=== PATIENT | male | born 1985 | race Caucasian/White ===

== ENCOUNTER 2017-03-19 05:18 | Emergency (ER) | payer MEDICAID ==
[~2017-03-19] VITALS: Ht 177.8 cm; Wt 88.5 kg
[2017-03-19] MEDS ORDERED: SUCCINYLCHOLINE CHLORIDE 200 MG/10 ML VIAL MC ONE (05:21)
--- NOTE | 2017-03-19 05:25 | NUR ---
Patient bib RA 83, FOR POTENTIAL OD. RECEIVED PATIENTS IN RESTRAINTS. PATIENT IS ASLEEP, RESPIRATIONS EVEN AND UNLABORED, PATIENT WAS GIVEN VERSED IN THE FIELD, FOR "BEING WILD" ACCORDING TO EMS. VSS STABLE AT THIS TIME.
--- NOTE | 2017-03-19 05:38 | NUR ---
DR. HOYOS AT BEDSIDE FOR EVAL.
[2017-03-19] MEDS ORDERED: IV NORMAL SALINE 1000 ML BAG IV ONE (05:45)
[2017-03-19 06:01] LABS: *BILIRUBIN,URIN NEGATIVE (NEGATIVE); *BLOOD, URINE Trace-intact (NEGATIVE); *CLARITY,URINE CLEAR (CLEAR); *COLOR,URINE YELLOW (YELLOW); *KETONES,URINE NEGATIVE (NEGATIVE); *PROTEIN,URINE NEGATIVE (NEGATIVE); *UROBILINOGEN,URINE 0.2 E.U./dl (NORMAL); LEUKOCYTE ESTERASE ,URINE NEGATIVE (NEGATIVE); NITRITE, URINE NEGATIVE (NEGATIVE); PH,URINE 5.5 (5.0-8.0); UGLUCOSE NEGATIVE (NEGATIVE)
[2017-03-19 06:04] LABS: BASOPHILS # (AUTO) 0.1 K/uL (0.0-8.0); BASOPHILS % (AUTO) 0.6 % (0.0-2.0); EOSINOPHILS % (AUTO) 0.2 % (0.0-7.0); HEMOGLOBIN 14.6 G/DL (14.0-18.0); LYMPHOCYTES # (AUTO) 1.5 K/UL (0.8-4.8); LYMPHOCYTES % (AUTO) 12.6 % (20.5-51.5); MEAN CORPUSCULAR HEMOGLOBIN 28.8 UUG (27.0-31.0); MEAN CORPUSCULAR HGB CONC 33 g/dL (32.0-37.0); MONOCYTES # (AUTO) 0.5 K/UL (0.1-1.30); MONOCYTES % (AUTO) 4.4 % (0.0-11.0); NEUTROPHILS # (AUTO) 9.6 K/UL (1.8-8.9); NEUTROPHILS % (AUTO) 82.2 % (38.5-71.5); PLATELET COUNT (AUTO) 250 K/UL (150-450); RED BLOOD CELL COUNT(AUTO) 5.05 MIL/UL (4.7-6.1); WHITE BLOOD COUNT (AUTO) 11.7 K/UL (4.0-11.2)
[2017-03-19 06:09] LABS: CARBON DIOXIDE 28 mmol/L (21-32); CHLORIDE 103 mmol/L (98-107); GLUCOSE 107 mg/dL (74-106); POTASSIUM 3.3 mmol/L (3.5-5.1); UREA NITROGEN, BLOOD 6 mg/dL (7-18)
--- NOTE | 2017-03-19 06:10 | NUR ---
WENT DOWN TO CT SCAN WITH PATIENT
[2017-03-19 06:12] LABS: BACTERIA,URINE NONE SEEN /HPF (NONE SEEN); RBC,URINE 0-3 /HPF (0-3); SQUAMOUS EPITHELIAL CELL,UR FEW /HPF (NONE SEEN); WBC,URINE 0-3 /HPF (0-3)
[2017-03-19 06:15] LABS: ALANINE AMINOTRANSFERASE 27 U/L (16-63); ALKALINE PHOSPHATASE 112 U/L (50-136); ASPARTATE AMINOTRANSFERASE 16 U/L (15-37); BILIRUBIN,DIRECT 0.1 mg/dL (0.0-0.2); BILIRUBIN,TOTAL 0.3 mg/dL (0.2-1.0); TOTAL PROTEIN, SERUM 7.8 g/dL (6.4-8.2)
--- NOTE | 2017-03-19 06:15 | NUR ---
AFTER CT SCAN PATIENT HAD LABOR BREATHING 02 SAT AT 88% RA. PLACED ON N/C 5L OF 02 AND TRANSFER BACK TO ER. AFTER O2 WAS APPLIED SATS CAME UP TO 95%
[2017-03-19 06:16] LABS: ETHANOL < 3 MG/DL (0-0)
[2017-03-19 06:18] LABS: ACETAMINOPHEN < 2.0 ug/mL (10-30)
[2017-03-19 06:19] LABS: *AMPHETAMINE, URINE POSITIVE (NEGATIVE); *BARBITURATE, URINE NEGATIVE (NEGATIVE); *CANNABINOID, URINE POSITIVE (NEGATIVE); *COCCAINE, URINE NEGATIVE (NEGATIVE); *OPIATE, URINE NEGATIVE (NEGATIVE); *PHENCYCLIDINE SCREEN,URINE NEGATIVE (NEGATIVE)
--- NOTE | 2017-03-19 06:20 | NUR ---
PATIENT RETURNED FROM CT SCAN, O2 SAT LOW, NOTED WHITE SPUTUM IN MOUTH, SUCTIONED PATIENT. DR HOYOS WAS READY TO INTUBATE PATIENT. PATIENT WOKE UP WHILE ATTEMPTING TO INTUBATE. PATIENT MORE AWAKE NOW, COUGHING UP WHITE PHLEGM.
[2017-03-19 06:22] LABS: THYROID STIMULATING HORMONE 1.656 mIU/mL (0.358-3.740)
--- NOTE | 2017-03-19 06:41 | NUR ---
DR. CALVERT, [employer] AT BEDSIDE, PATIENT IS AWAKE AND ABLE TO ANSWER QUESTIONS.
--- NOTE | 2017-03-19 06:42 | NUR ---
PATIENT IS AWAKE, BREATHING IS EVEN AND UNLABORED. O2 99% ON RA. NOT MAKING SENSE AT THIS TIME. A/O X1.
--- NOTE | 2017-03-19 07:08 | NUR ---
HAND OFF GIVEN TO DAY NURSE MICHAELA COTO.
--- NOTE | 2017-03-19 07:43 | NUR ---
AT 0715 REC'D BEDSIDE REPORT , PT ALERT TO NAME AND , NO DISTRESS NOTED, HOWEVER PT IS REPETATIVE WITH QUESTIONS, MONITOR SHOWS, PO2=97 % ON ROOMAIR. 1L 0.9NS IV INFUSED.
[2017-03-19] MEDS ORDERED: diphenhydrAMINE 25 MG CAP PO ONE ×2 (08:14→08:45)
--- NOTE | 2017-03-19 09:39 | NUR ---
PT'S FRIENAD ARRIVED. IV D/C'D INTACT, ACI GIVEN, PT GOT DRESSED AND AMBULATED W/O DIFF/TOOK ALL BELONGINGS.
--- NOTE | 2017-03-19 09:40 | NUR ---
PT A/O X4.
[2017-03-19 09:42] VITALS: BP 138/78
== END 2017-03-19 09:43 | disposition home or self-care (01) ==
LOC: ER 05:20
DX: G92 Toxic encephalopathy (principal); F15.20 Other stimulant dependence, uncomplicated; R41.82 Altered mental status, unspecified
CPT/HCPCS: 36415; 70030-TC; 70450; 71010; 80307; 84443; 85025; 93005; A4663; C1758; G0480; G0480-TC; J7030; Q0163